=== PATIENT | female | born 1960 | race Two or more races ===

== ENCOUNTER 2021-04-30 11:17 | Inpatient (IN) | payer SELFPAY ==
[~2021-04-30] VITALS: Ht 162.6 cm; Wt 61.7 kg
[~2021-04-30 11:17] MED LIST: DEXTROSE 50% WATER 50ML SYRINGE IV ONE; SODIUM BICARBONATE 8.4% 1 MEQ/ML 50ML SYR IV ONE
[2021-04-30] MEDS ORDERED: ATROPINE SULFATE 1MG/10ML SYR IV ONE ×2 (11:45→12:00)
[2021-04-30] MEDS ORDERED: SODIUM CHLORIDE 0.9% 1000ML BAG (SEPSIS BOLUS) IV ONE (11:45)
[2021-04-30] MEDS ORDERED: CALCIUM GLUCONATE 100MG/ML 10ML VIAL IV ONE (11:45)
[2021-04-30] MEDS ORDERED: MIDAZOLAM HCL 2 MG/2 ML VIAL IV ONE (12:00)
[2021-04-30] MEDS ORDERED: ATROPINE SULFATE 1MG/ML VIAL IV ONE (12:00)
[2021-04-30] MEDS ORDERED: DEXT 5%/0.9% NACL 1,000 ML IV ONE (12:00)
[2021-04-30 12:10] LABS: BG BASE EXCESS -2.9 mmol/L (-2.0-2.0); BG CARBOXYHEMOGLOBIN 11.4 % (0.5-1.5); BG DEOXYHEMOGLOBIN 8.1 % (0.0-5.0); BG FRACTION INSPIRED OXYGEN 21; BG HCO3 ACT 26.1 mmol/L (22.0-26.0); BG METHEMOGLOBIN 0.2 % (0.0-1.5); BG OXYGEN SATURATION 90.8 % (92.0-98.5); BG OXYHEMOGLOBIN 80.3 % (94.0-97.0); BG PCO2 62.2 mmHg (35.0-45.0); BG PO2 69.7 mmHg (75.0-100.0); BG SAMPLE SITE LEFT RADIAL; BG TOTAL HEMOGLOBIN 16.8 g/dL (12.0-18.0); BG VENT MODE ROOM AIR
[2021-04-30] MEDS ORDERED: DOPAMINE 400MG/250ML PREMIX 250 ML IV ONE (12:45)
[2021-04-30 12:46] LABS: CHLORIDE 105 mEq/L (98-107)
[2021-04-30 12:55] LABS: CREATINE KINASE 355 IU/L (26-192)
[2021-04-30 12:57] LABS: HEMATOCRIT. 44.6 % (36.0-48.0); HEMOGLOBIN. 14.9 g/dL (12.0-16.0); MEAN CORPUSCULAR VOLUME 107.5 fL (81.0-99.0); MEAN PLATELET VOLUME 9.1 fl (7.4-10.4); PLATELET 153 x1000/uL (130-400); RED BLOOD CELL COUNT 4.15 mill/uL (4.2-5.4); RED CELL DISTRIBUTION WIDTH 15.3 % (11.6-14.6)
[2021-04-30] MEDS ORDERED: POTASSIUM CHLORIDE INJ 40 MEQ in DEXT 5% WATER 250 ML IV ONE (13:00)
[2021-04-30 13:07] LABS: ETHANOL BLOOD 223 mg/dL
[2021-04-30] MEDS ORDERED: VANCOMYCIN 1 G PREMIX 200 ML IV SCH (13:15)
[2021-04-30] MEDS ORDERED: CEFTRIAXONE 1 G PREMIX 50 ML IV SCH (13:15)
[2021-04-30] MEDS ORDERED: MIDAZOLAM 100MG/100ML PMX 100 ML IV PRN (13:15)
[2021-04-30 13:43] LABS: PLATELET ESTIMATE NORMAL
[2021-04-30 13:46] LABS: BG CARBOXYHEMOGLOBIN 8.1 % (0.5-1.5); BG DEOXYHEMOGLOBIN 0.4 % (0.0-5.0); BG FRACTION INSPIRED OXYGEN 100; BG HCO3 ACT 24.3 mmol/L (22.0-26.0); BG METHEMOGLOBIN 0.3 % (0.0-1.5); BG OXYGEN SATURATION 99.6 % (92.0-98.5); BG OXYHEMOGLOBIN 91.2 % (94.0-97.0); BG PCO2 35.4 mmHg (35.0-45.0); BG PH 7.455 (7.350-7.450); BG PO2 518.9 mmHg (75.0-100.0); BG SAMPLE SITE RIGHT RADIAL; BG TOTAL HEMOGLOBIN 16.3 g/dL (12.0-18.0); BG VENT MODE VENT - AC
[2021-04-30 14:02] LABS: CLARITY URINE CLEAR (CLEAR); COLOR URINE YELLOW (YELLOW); KETONES URINE TRACE (NEGATIVE); LEUKOCYTE ESTERASE URINE NEGATIVE (NEGATIVE); NITRITE URINE NEGATIVE (NEGATIVE); OCCULT BLOOD URINE 1+ (NEGATIVE); PROTEIN URINE 1+ (NEGATIVE); SPECIFIC GRAVITY URINE 1.009 (1.005-1.030); UROBILINOGEN URINE 0.2 E.U./dL (0.2-1.0)
[2021-04-30 14:30] LABS: *AMPHETAMINES SCREEN URINE NEGATIVE (NEGATIVE); *BARBITURATES SCREEN URINE NEGATIVE (NEGATIVE); *BENZODIAZEPINES SCREEN URINE NEGATIVE (NEGATIVE); *COCAINE SCREEN URINE NEGATIVE (NEGATIVE); METHADONE URINE SCREEN NEGATIVE (NEGATIVE); OPIATES URINE SCREEN NEGATIVE (NEGATIVE)
[2021-04-30 14:31] LABS: CANNABINOID URINE SCREEN NEGATIVE (NEGATIVE); PHENCYCLIDINE URINE SCREEN NEGATIVE (NEGATIVE)
[2021-04-30 15:09] LABS: PHOSPHORUS 4.7 mg/dL (2.5-4.9)
[2021-04-30] MEDS ORDERED: MAGNESIUM 2 G PREMIX 50 ML IV SCH (15:30)
[2021-04-30] MEDS ORDERED: FENTANYL CITRATE 2,500 MCG in SODIUM CHLORIDE 0.9% 200 ML IV PRN (16:00)
[2021-04-30] MEDS ORDERED: FENTANYL CITRATE/PF 1,000 MCG in SODIUM CHLORIDE 0.9% 80 ML IV PRN (16:00)
[2021-04-30] MEDS: DEXT 5%/0.45% NACL 1000ML 1,000 ML IV SCH (16:00)
[2021-04-30] MEDS ORDERED: PROPOFOL 10MG/ML 100ML 100 ML IV NR (16:00)
[2021-04-30] MEDS ORDERED: PROPOFOL 10MG/ML 100ML 100 ML IV ONE (16:00)
[2021-04-30] MEDS: ONDANSETRON HCL 4MG/2ML INJ IV PRN (16:50)
[2021-04-30] MEDS: PANTOPRAZOLE SODIUM 40 MG/VIAL IV SCH (16:50)
[2021-04-30] MEDS: FOLIC ACID 1 MG, THIAMINE HCL 100 MG, MVI, ADULT NO.1 10 ML in DEXTROSE 5% WATER 1,000 ML IV SCH (17:30)
[2021-04-30] MEDS ORDERED: POTASSIUM CHLORIDE 20MEQ TABLET SR PO SCH (18:45)
[2021-04-30] MEDS ORDERED: NOREPINEPHRINE 8 MG in DEXTROSE 5% WATER 250 ML IV PRN (21:30)
[2021-05-01] VITALS (91 sets, daily range): BP systolic 86–194; BP diastolic 46–121
[2021-05-01] MEDS: KCL 20MEQ/100ML PREMIX 100 ML IV SCH ×3 (00:52→04:34)
[2021-05-01] MEDS: DEXT 5%/0.45% NACL 1000ML 1,000 ML IV SCH ×2 (00:53→09:04)
[2021-05-01] MEDS ORDERED: MIDAZOLAM 100MG/100ML PMX 100 ML IV PRN (01:30)
[2021-05-01] MEDS ORDERED: FENTANYL CITRATE/PF 2,500 MCG in SODIUM CHLORIDE 0.9% 200 ML IV PRN (01:30)
[2021-05-01] MEDS ORDERED: MIDAZOLAM HCL 100 MG in SODIUM CHLORIDE 0.9% 100 ML IV PRN (02:00)
[2021-05-01 04:48] LABS: HEMATOCRIT. 42.3 % (36.0-48.0); MEAN CORPUSCULAR HEMOGLOBIN 35.6 pg (28.0-32.0); MEAN CORPUSCULAR VOLUME 107.6 fL (81.0-99.0); MEAN PLATELET VOLUME 9.7 fl (7.4-10.4); PLATELET 115 x1000/uL (130-400); RED BLOOD CELL COUNT 3.93 mill/uL (4.2-5.4); RED CELL DISTRIBUTION WIDTH 15.6 % (11.6-14.6)
[2021-05-01 05:31] LABS: PLATELET ESTIMATE SLIGHTLY DECREASED
[2021-05-01] MEDS: PANTOPRAZOLE SODIUM 40 MG/VIAL IV SCH (09:05)
[2021-05-01] MEDS: PROPOFOL 10MG/ML 100ML 100 ML IV PRN ×2 (09:05→22:13)
[2021-05-01] MEDS ORDERED: NICARDIPINE 50 MG in SODIUM CHLORIDE 0.9% 230 ML IV SCH (09:30)
[2021-05-01 09:35] LABS: BG BASE EXCESS 3.5 mmol/L (-2.0-2.0); BG CARBOXYHEMOGLOBIN 0.5 % (0.5-1.5); BG DEOXYHEMOGLOBIN 3.1 % (0.0-5.0); BG FRACTION INSPIRED OXYGEN 50; BG HCO3 ACT 25.3 mmol/L (22.0-26.0); BG METHEMOGLOBIN 0.3 % (0.0-1.5); BG OXYGEN SATURATION 96.9 % (92.0-98.5); BG OXYHEMOGLOBIN 96.1 % (94.0-97.0); BG PCO2 30.7 mmHg (35.0-45.0); BG PH 7.534 (7.350-7.450); BG PO2 88.1 mmHg (75.0-100.0); BG SAMPLE SITE RIGHT BRACHIAL; BG TOTAL HEMOGLOBIN 15.2 g/dL (12.0-18.0); BG VENT MODE VENT - AC
[2021-05-01] MEDS ORDERED: LIDOCAINE HCL 1% 20ML VIAL (Pyxis) INJ ONE (11:03)
[2021-05-01] MEDS ORDERED: POTASSIUM CHLORIDE INJ 40 MEQ in DEXT 5% WATER 250 ML IV ONE (11:30)
[2021-05-01] MEDS ORDERED: METRONIDAZOLE 500 MG PREMIX 100 ML IV SCH (18:15)
[2021-05-01] MEDS ORDERED: IPRATROPIUM/ALBUTEROL 0.5-3(2.5)MG/3ML NEB HHN PRN (18:15)
[2021-05-01] MEDS ORDERED: PROPOFOL 10MG/ML 100ML 100 ML IV PRN (18:15)
[2021-05-01] MEDS: METRONIDAZOLE 500MG TABLET PO SCH (19:00)
[2021-05-01] MEDS: CEFEPIME 2,000 MG in DEXT 5% WATER 100 ML IV SCH (21:00)
[2021-05-02] VITALS (77 sets, daily range): BP systolic 78–166; BP diastolic 52–125
[2021-05-02] MEDS: DEXT 5%/0.45% NACL 1000ML 1,000 ML IV SCH ×3 (01:07→16:18)
[2021-05-02] MEDS: METRONIDAZOLE 500MG TABLET PO SCH ×3 (06:25→15:43)
[2021-05-02] MEDS: IPRATROPIUM/ALBUTEROL 0.5-3(2.5)MG/3ML NEB HHN SCH ×4 (08:03→20:46)
[2021-05-02 08:19] LABS: BG CARBOXYHEMOGLOBIN 0.8 % (0.5-1.5); BG DEOXYHEMOGLOBIN 7.1 % (0.0-5.0); BG HCO3 ACT 25.1 mmol/L (22.0-26.0); BG METHEMOGLOBIN 0.2 % (0.0-1.5); BG OXYGEN SATURATION 92.8 % (92.0-98.5); BG OXYHEMOGLOBIN 91.9 % (94.0-97.0); BG PCO2 38.3 mmHg (35.0-45.0); BG PH 7.434 (7.350-7.450); BG PO2 66.7 mmHg (75.0-100.0); BG SAMPLE SITE RIGHT RADIAL; BG TOTAL HEMOGLOBIN 13.1 g/dL (12.0-18.0); BG VENT MODE VENT - AC
[2021-05-02] MEDS: PANTOPRAZOLE SODIUM 40 MG/VIAL IV SCH (09:30)
[2021-05-02] MEDS: CEFEPIME 2,000 MG in DEXT 5% WATER 100 ML IV SCH ×2 (09:30→22:00)
[2021-05-02 09:48] LABS: HEMATOCRIT. 37.9 % (36.0-48.0); HEMOGLOBIN. 12.5 g/dL (12.0-16.0); MEAN CORPUSCULAR HEMOGLOBIN 35.8 pg (28.0-32.0); MEAN CORPUSCULAR VOLUME 108.5 fL (81.0-99.0); MEAN PLATELET VOLUME 11.1 fl (7.4-10.4); PLATELET 54 x1000/uL (130-400); RED BLOOD CELL COUNT 3.49 mill/uL (4.2-5.4); RED CELL DISTRIBUTION WIDTH 15.6 % (11.6-14.6)
[2021-05-02 10:16] LABS: CREATINE KINASE 3954 IU/L (26-192)
[2021-05-02] MEDS ORDERED: LORAZEPAM 2MG/ML CPJ IV NR (11:00)
[2021-05-02 12:05] LABS: BG CARBOXYHEMOGLOBIN 0.6 % (0.5-1.5); BG DEOXYHEMOGLOBIN 5.9 % (0.0-5.0); BG HCO3 ACT 24.7 mmol/L (22.0-26.0); BG METHEMOGLOBIN 0.3 % (0.0-1.5); BG OXYHEMOGLOBIN 93.2 % (94.0-97.0); BG PCO2 44.7 mmHg (35.0-45.0); BG PO2 76.9 mmHg (75.0-100.0); BG SAMPLE SITE RIGHT RADIAL; BG TOTAL HEMOGLOBIN 13.9 g/dL (12.0-18.0); BG VENT MODE VENT - CPAP
[2021-05-02] MEDS ORDERED: RACEPINEPHRINE 2.25% 0.5ML NEB VIAL HHN NR (13:15)
[2021-05-02] MEDS ORDERED: RACEPINEPHRINE 2.25% 0.5ML NEB VIAL HHN PRN (15:00)
[2021-05-02 17:12] LABS: PLATELET ESTIMATE DECREASED
[2021-05-02] MEDS ORDERED: HALOPERIDOL LACTATE 5MG/ML VIAL IM PRN (19:45)
[2021-05-02 21:05] LABS: INR 1.2; PROTHROMBIN TIME 12.6 sec (9.6-11.0)
[2021-05-03] VITALS (28 sets, daily range): BP systolic 103–159; BP diastolic 59–96
[2021-05-03] MEDS: LORAZEPAM 2MG/ML CPJ IV PRN (00:02)
[2021-05-03] MEDS: DEXT 5%/0.45% NACL 1000ML 1,000 ML IV SCH ×3 (00:03→16:51)
[2021-05-03] MEDS: METRONIDAZOLE 500 MG PREMIX 100 ML IV SCH ×2 (01:11→10:27)
[2021-05-03] MEDS: IPRATROPIUM/ALBUTEROL 0.5-3(2.5)MG/3ML NEB HHN SCH ×4 (01:43→20:25)
[2021-05-03] MEDS: METRONIDAZOLE 500MG TABLET GT SCH ×2 (02:00→17:11)
[2021-05-03 05:01] LABS: HEMOGLOBIN. 11.3 g/dL (12.0-16.0); MEAN CORPUSCULAR HEMOGLOBIN 35.6 pg (28.0-32.0); MEAN CORPUSCULAR VOLUME 106.9 fL (81.0-99.0); RED BLOOD CELL COUNT 3.18 mill/uL (4.2-5.4)
[2021-05-03 05:11] LABS: CHLORIDE 106 mEq/L (98-107)
[2021-05-03] MEDS ORDERED: NON FORMULARY PATIENT HOME MED XX SCH (06:45)
[2021-05-03] MEDS: PANTOPRAZOLE SODIUM 40 MG/VIAL IV SCH (08:38)
[2021-05-03] MEDS: CEFEPIME 2,000 MG in DEXT 5% WATER 100 ML IV SCH ×2 (08:39→21:00)
[2021-05-03] MEDS: KCL 20MEQ/100ML PREMIX 100 ML IV SCH ×3 (08:40→13:24)
[2021-05-03 10:12] LABS: PHOSPHORUS 2.4 mg/dL (2.5-4.9)
[2021-05-03] MEDS ORDERED: POTASSIUM-SODIUM PHOSPHATE POWDER PACKET PO NR (11:15)
[2021-05-03 12:20] LABS: PLATELET ESTIMATE MARKEDLY DECREASED
[2021-05-03 12:21] LABS: PLATELET 42 x1000/uL (130-400)
[2021-05-03] MEDS: FOLIC ACID 1 MG, THIAMINE HCL 100 MG, MVI, ADULT NO.1 10 ML in DEXTROSE 5% WATER 1,000 ML IV SCH (15:51)
[2021-05-03] MEDS: THROAT LOZENGES-BENZOCAINE/MENTH/CETYLPYRD CL LOZENGES MM PRN (19:01)
[2021-05-04] VITALS (10 sets, daily range): BP systolic 117–178; BP diastolic 66–119
[2021-05-04] MEDS: DEXT 5%/0.45% NACL 1000ML 1,000 ML IV SCH (00:29)
[2021-05-04] MEDS: IPRATROPIUM/ALBUTEROL 0.5-3(2.5)MG/3ML NEB HHN SCH ×4 (02:20→20:22)
[2021-05-04 06:01] LABS: HEMOGLOBIN. 11.4 g/dL (12.0-16.0); MEAN CORPUSCULAR VOLUME 107.4 fL (81.0-99.0); MEAN PLATELET VOLUME 9.8 fl (7.4-10.4); PLATELET 74 x1000/uL (130-400); RED BLOOD CELL COUNT 3.17 mill/uL (4.2-5.4); RED CELL DISTRIBUTION WIDTH 15.1 % (11.6-14.6)
[2021-05-04 06:04] LABS: CHLORIDE 107 mEq/L (98-107)
[2021-05-04 06:10] LABS: PHOSPHORUS 1.5 mg/dL (2.5-4.9)
[2021-05-04] MEDS ORDERED: POTASSIUM CHLORIDE 20MEQ TABLET SR PO NR (07:45)
[2021-05-04] MEDS: THROAT LOZENGES-BENZOCAINE/MENTH/CETYLPYRD CL LOZENGES MM PRN (07:52)
[2021-05-04] MEDS: PHENOL/SODIUM PHENOLATE 1.4% SRPAY 177ML MM PRN (07:53)
[2021-05-04 07:57] LABS: PLATELET ESTIMATE DECREASED
[2021-05-04] MEDS ORDERED: MAGNESIUM 2 G PREMIX 50 ML IV NR (08:30)
[2021-05-04] MEDS ORDERED: POTASSIUM PHOS,M-BASIC-D-BASIC 30 MMOL in DEXT 5% WATER 500 ML IV NR (08:30)
[2021-05-04] MEDS: FAMOTIDINE 20MG/2ML VIAL IV SCH ×2 (08:37→21:52)
[2021-05-04] MEDS: SODIUM CHLORIDE 0.45% 1,000 ML IV SCH ×3 (08:38→23:52)
[2021-05-04] MEDS: CEFEPIME 2,000 MG in DEXT 5% WATER 100 ML IV SCH ×2 (10:37→21:52)
[2021-05-04] MEDS: METRONIDAZOLE 500MG TABLET GT SCH ×2 (10:45→17:51)
[2021-05-04] MEDS: CLONIDINE 0.1MG TABLET PO PRN (10:47)
[2021-05-04] MEDS: MAGNESIUM OXIDE 400MG TABLET PO SCH (13:30)
[2021-05-04] MEDS: ACETAMINOPHEN 325MG TABLET PO PRN (13:31)
[2021-05-04] MEDS: ONDANSETRON HCL 4MG/2ML INJ IV PRN (16:34)
[2021-05-04] MEDS: CLONIDINE 0.1MG TABLET PO SCH ×2 (17:52→21:52)
[2021-05-04] MEDS: LORAZEPAM 2MG/ML CPJ IV PRN (18:57)
[2021-05-04] MEDS ORDERED: POTASSIUM CHLORIDE 20MEQ/PACKET PO NR (20:00)
[2021-05-05] VITALS: BP 113/78
[2021-05-05] MEDS: METRONIDAZOLE 500MG TABLET GT SCH ×3 (01:18→17:03)
[2021-05-05] MEDS: IPRATROPIUM/ALBUTEROL 0.5-3(2.5)MG/3ML NEB HHN SCH ×4 (02:43→20:14)
[2021-05-05] MEDS: THROAT LOZENGES-BENZOCAINE/MENTH/CETYLPYRD CL LOZENGES MM PRN ×2 (03:01→21:16)
[2021-05-05] MEDS: PHENOL/SODIUM PHENOLATE 1.4% SRPAY 177ML MM PRN ×2 (03:01→21:16)
[2021-05-05 04:00] VITALS: BP 141/84
[2021-05-05] MEDS: CLONIDINE 0.1MG TABLET PO SCH ×3 (05:06→21:04)
[2021-05-05 06:41] LABS: CHLORIDE 106 mEq/L (98-107)
[2021-05-05 07:16] LABS: HEMATOCRIT. 35.2 % (36.0-48.0); HEMOGLOBIN. 11.6 g/dL (12.0-16.0); MEAN CORPUSCULAR HEMOGLOBIN 35.8 pg (28.0-32.0); MEAN CORPUSCULAR VOLUME 108.2 fL (81.0-99.0); MEAN PLATELET VOLUME 9.2 fl (7.4-10.4); PLATELET 99 x1000/uL (130-400); RED BLOOD CELL COUNT 3.25 mill/uL (4.2-5.4); RED CELL DISTRIBUTION WIDTH 14.5 % (11.6-14.6)
[2021-05-05] MEDS: SODIUM CHLORIDE 0.45% 1,000 ML IV SCH ×3 (07:45→23:43)
[2021-05-05] MEDS: CEFEPIME 2,000 MG in DEXT 5% WATER 100 ML IV SCH ×2 (09:00→21:04)
[2021-05-05 09:12] LABS: PLATELET ESTIMATE DECREASED
[2021-05-05] MEDS: FAMOTIDINE 20MG/2ML VIAL IV SCH ×2 (09:18→21:04)
[2021-05-05] MEDS: MAGNESIUM OXIDE 400MG TABLET PO SCH (09:18)
[2021-05-05 12:00] VITALS: BP 158/90
[2021-05-05] MEDS ORDERED: POTASSIUM PHOS,M-BASIC-D-BASIC 10 MMOL in DEXT 5% WATER 246.6667 ML IV NR (14:00)
[2021-05-05] MEDS: NICOTINE 14MG PATCH TD SCH (14:13)
[2021-05-05 16:00] VITALS: BP 149/91
[2021-05-05 20:00] VITALS: BP 135/91
[2021-05-06] VITALS: BP 167/87
[2021-05-06] MEDS: CLONIDINE 0.1MG TABLET PO PRN ×2 (01:23→08:30)
[2021-05-06] MEDS: METRONIDAZOLE 500MG TABLET GT SCH ×3 (01:23→17:29)
[2021-05-06] MEDS: IPRATROPIUM/ALBUTEROL 0.5-3(2.5)MG/3ML NEB HHN SCH ×4 (01:30→20:22)
[2021-05-06 04:00] VITALS: BP 151/83
[2021-05-06] MEDS: CLONIDINE 0.1MG TABLET PO SCH ×3 (05:05→21:32)
[2021-05-06 06:50] LABS: HEMOGLOBIN. 12.4 g/dL (12.0-16.0); MEAN CORPUSCULAR HEMOGLOBIN 36.3 pg (28.0-32.0); MEAN CORPUSCULAR VOLUME 108.1 fL (81.0-99.0); MEAN PLATELET VOLUME 9.3 fl (7.4-10.4); PLATELET 159 x1000/uL (130-400); RED BLOOD CELL COUNT 3.42 mill/uL (4.2-5.4); RED CELL DISTRIBUTION WIDTH 14.5 % (11.6-14.6)
[2021-05-06 07:00] LABS: CHLORIDE 104 mEq/L (98-107)
[2021-05-06 08:00] VITALS: BP 162/85
[2021-05-06] MEDS: CEFEPIME 2,000 MG in DEXT 5% WATER 100 ML IV SCH ×2 (08:30→21:31)
[2021-05-06] MEDS: MAGNESIUM OXIDE 400MG TABLET PO SCH (08:30)
[2021-05-06] MEDS: SODIUM CHLORIDE 0.45% 1,000 ML IV SCH ×3 (08:31→23:45)
[2021-05-06] MEDS: NICOTINE 14MG PATCH TD SCH (08:31)
[2021-05-06] MEDS: FAMOTIDINE 20MG/2ML VIAL IV SCH ×2 (08:31→21:32)
[2021-05-06] MEDS: LORAZEPAM 2MG/ML CPJ IV PRN (10:25)
[2021-05-06 12:00] VITALS: BP 149/80
[2021-05-06] MEDS: AMLODIPINE 5MG TABLET PO SCH ×2 (13:03→21:32)
[2021-05-06] MEDS: FOLIC ACID 1 MG, THIAMINE HCL 100 MG, MVI, ADULT NO.1 10 ML in DEXTROSE 5% WATER 1,000 ML IV SCH ×2 (15:00→22:43)
[2021-05-06 16:00] VITALS: BP 166/88
[2021-05-06 20:00] VITALS: BP 159/81
[2021-05-07] VITALS: BP 147/80
[2021-05-07 04:00] VITALS: BP 132/84
[2021-05-07] MEDS: CLONIDINE 0.1MG TABLET PO SCH ×3 (05:37→16:58)
[2021-05-07 06:49] LABS: HEMATOCRIT. 34.1 % (36.0-48.0); HEMOGLOBIN. 11.4 g/dL (12.0-16.0); MEAN CORPUSCULAR HEMOGLOBIN 35.6 pg (28.0-32.0); MEAN CORPUSCULAR VOLUME 106.8 fL (81.0-99.0); MEAN PLATELET VOLUME 8.8 fl (7.4-10.4); PLATELET 225 x1000/uL (130-400); RED CELL DISTRIBUTION WIDTH 14.5 % (11.6-14.6)
[2021-05-07 07:17] LABS: CHLORIDE 103 mEq/L (98-107)
[2021-05-07] MEDS: IPRATROPIUM/ALBUTEROL 0.5-3(2.5)MG/3ML NEB HHN SCH ×3 (07:22→21:12)
[2021-05-07] MEDS: SODIUM CHLORIDE 0.45% 1,000 ML IV SCH ×2 (07:45→23:45)
[2021-05-07 07:49] LABS: PLATELET ESTIMATE NORMAL
[2021-05-07 08:00] VITALS: BP 151/82
[2021-05-07] MEDS: FAMOTIDINE 20MG/2ML VIAL IV SCH ×2 (09:14→20:57)
[2021-05-07] MEDS: NICOTINE 14MG PATCH TD SCH (09:14)
[2021-05-07] MEDS: MAGNESIUM OXIDE 400MG TABLET PO SCH (09:14)
[2021-05-07] MEDS: AMLODIPINE 5MG TABLET PO SCH ×2 (09:14→20:56)
[2021-05-07] MEDS: LORAZEPAM 2MG/ML CPJ IV PRN ×2 (09:55→22:08)
[2021-05-07 12:00] VITALS: BP 155/69
[2021-05-07 16:00] VITALS: BP 174/87
[2021-05-07] MEDS: ACETAMINOPHEN 325MG TABLET PO PRN (16:48)
[2021-05-07 20:00] VITALS: BP 145/83
[2021-05-08] VITALS: BP 155/77
[2021-05-08 04:00] VITALS: BP 167/80
[2021-05-08] MEDS: CLONIDINE 0.1MG TABLET PO PRN (04:06)
[2021-05-08] MEDS: CLONIDINE 0.1MG TABLET PO SCH ×3 (06:30→21:24)
[2021-05-08] MEDS: SODIUM CHLORIDE 0.45% 1,000 ML IV SCH ×3 (06:30→23:45)
[2021-05-08 07:14] LABS: PLATELET ESTIMATE NORMAL
[2021-05-08 08:00] VITALS: BP 157/83
[2021-05-08] MEDS: IPRATROPIUM/ALBUTEROL 0.5-3(2.5)MG/3ML NEB HHN SCH ×3 (08:25→22:09)
[2021-05-08] MEDS: MAGNESIUM OXIDE 400MG TABLET PO SCH (08:42)
[2021-05-08] MEDS: FAMOTIDINE 20MG/2ML VIAL IV SCH ×2 (08:42→21:24)
[2021-05-08] MEDS: AMLODIPINE 5MG TABLET PO SCH ×2 (08:43→21:23)
[2021-05-08] MEDS: NICOTINE 14MG PATCH TD SCH (08:43)
[2021-05-08] MEDS: LORAZEPAM 2MG/ML CPJ IV PRN (09:55)
[2021-05-08 12:00] VITALS: BP 138/67
[2021-05-08 16:00] VITALS: BP 141/71
[2021-05-08 20:00] VITALS: BP 159/86
[2021-05-09] VITALS: BP 159/80
[2021-05-09] MEDS: IPRATROPIUM/ALBUTEROL 0.5-3(2.5)MG/3ML NEB HHN SCH ×3 (01:43→12:25)
[2021-05-09 04:00] VITALS: BP 173/92
[2021-05-09] MEDS: CLONIDINE 0.1MG TABLET PO SCH (06:26)
[2021-05-09 08:00] VITALS: BP 156/81
[2021-05-09] MEDS: FAMOTIDINE 20MG/2ML VIAL IV SCH (09:46)
[2021-05-09] MEDS: AMLODIPINE 5MG TABLET PO SCH (09:46)
[2021-05-09] MEDS: MAGNESIUM OXIDE 400MG TABLET PO SCH (09:47)
[2021-05-09] MEDS: NICOTINE 14MG PATCH TD SCH (09:53)
[2021-05-09] MEDS ORDERED: ASPIRIN 81MG EC TABLET PO NR (10:30)
[2021-05-09 12:00] VITALS: BP 160/82
[2021-05-09 14:00] VITALS: BP 160/82
[2021-05-09] MEDS ORDERED: CLONIDINE 0.2MG TABLET PO SCH (14:00)
[2021-05-09] MEDS: FOLIC ACID 1 MG, THIAMINE HCL 100 MG, MVI, ADULT NO.1 10 ML in DEXTROSE 5% WATER 1,000 ML IV SCH (15:00)
[2021-05-09] MEDS: SODIUM CHLORIDE 0.45% 1,000 ML IV SCH ×2 (15:45→15:57)
[2021-05-09 16:00] VITALS: BP 167/85
[2021-05-10] MEDS ORDERED: ASPIRIN 81MG EC TABLET PO SCH (09:00)
== END 2021-05-09 18:35 | disposition home or self-care (01) | DRG 720 ==
LOC: ER 11:22 → MICUSO 15:14 → ENRESERV 22:35 → 6WST 05-04 09:36 → 6EST 05-07 20:25
PROVIDERS: ADMIT Internal Medicine; ATTEND Internal Medicine
PROC: 5A1945Z Respiratory Ventilation, 24-96 Consecutive Hours (ICD-10-PCS; principal; 2021-04-30)
PROC: 0BH17EZ Insertion of Endotracheal Airway into Trachea, Via Natural or Artificial Opening (ICD-10-PCS; 2021-04-30)
PROC: 02HV33Z Insertion of Infusion Device into Superior Vena Cava, Percutaneous Approach (ICD-10-PCS; 2021-05-01)
PROC: B548ZZA Ultrasonography of Superior Vena Cava, Guidance (ICD-10-PCS; 2021-05-01)
DX: A41.9 Sepsis, unspecified organism (principal); J96.01 Acute respiratory failure with hypoxia; N17.0 Acute kidney failure with tubular necrosis; J69.0 Pneumonitis due to inhalation of food and vomit; G93.41 Metabolic encephalopathy; K85.90 Acute pancreatitis without necrosis or infection, unspecified; I24.8 Other forms of acute ischemic heart disease; D69.6 Thrombocytopenia, unspecified; E83.39 Other disorders of phosphorus metabolism; F10.129 Alcohol abuse with intoxication, unspecified; E87.6 Hypokalemia; R65.20 Severe sepsis without septic shock; E16.2 Hypoglycemia, unspecified; E83.42 Hypomagnesemia; E86.0 Dehydration; E86.1 Hypovolemia; I10 Essential (primary) hypertension; R00.1 Bradycardia, unspecified; K76.0 Fatty (change of) liver, not elsewhere classified; M62.82 Rhabdomyolysis; Y90.7 Blood alcohol level of 200-239 mg/100 ml; Z78.1 Physical restraint status; Z86.73 Personal history of transient ischemic attack (TIA), and cerebral infarction without residual deficits; Z86.74 Personal history of sudden cardiac arrest; Z20.822 Contact with and (suspected) exposure to COVID-19
CPT/HCPCS: 31500; 36415; 36600; 71045; 76700; 76937; 78580; 80048; 80053; 80305; 80320; 81003; 82140; 82375; 82533; 82550; 82805; 82962; 83605; 83735; 83880; 84100; 84132; 84145; 84443; 84478; 84484; 85025; 85379; 86850; 86900; 87015; 87045; 87070; 87426; 87427; 87449; 92610; 93005; 93306; 93970; 94002; 94003; 94640; 97161; 97166; 99285; A6261; C1725; C1893; C9113; J0461; J0610; J0692; J0696; J1265; J2060; J2250; J2405; J2704; J3010; J3370; J3411; J3475; J3480; J3490; J7030; J7042; J7050; J7060; J7070; G0480

== ENCOUNTER 2021-05-11 11:04 | Emergency (ER) | payer SELFPAY ==
[~2021-05-11] VITALS: Ht 165.1 cm; Wt 65.0 kg
[2021-05-11 14:07] LABS: HEMATOCRIT. 39.2 % (36.0-48.0); HEMOGLOBIN. 13.4 g/dL (12.0-16.0); MEAN CORPUSCULAR HEMOGLOBIN 36.3 pg (28.0-32.0); MEAN CORPUSCULAR VOLUME 106.7 fL (81.0-99.0); MEAN PLATELET VOLUME 8.8 fl (7.4-10.4); PLATELET 514 x1000/uL (130-400); RED BLOOD CELL COUNT 3.68 mill/uL (4.2-5.4); RED CELL DISTRIBUTION WIDTH 14.4 % (11.6-14.6)
[2021-05-11 14:12] LABS: CHLORIDE 101 mEq/L (98-107)
[2021-05-11 14:24] LABS: PLATELET ESTIMATE INCREASED
[2021-05-11 14:41] LABS: ETHANOL BLOOD 96 mg/dL
[2021-05-11] MEDS ORDERED: FOLIC ACID 1 MG, THIAMINE HCL 100 MG, MVI, ADULT NO.1 10 ML in DEXTROSE 5% WATER 1,000 ML IV ONE (17:15)
[2021-05-11] MEDS ORDERED: FOLIC ACID 1 MG, THIAMINE HCL 100 MG, MVI, ADULT NO.1 10 ML in DEXTROSE 5% WATER 1,000 ML IV SCH (18:00)
[2021-05-11 21:21] VITALS: BP 144/78
== END 2021-05-11 21:30 | disposition home or self-care (01) ==
LOC: ER 11:04
DX: F10.129 Alcohol abuse with intoxication, unspecified (principal); Y90.0 Blood alcohol level of less than 20 mg/100 ml
CPT/HCPCS: 36415; 80053; 80320; 85025; 96365; 99284; J3411; J3490; J7070; G0480